=== PATIENT | male | born 1955 | race Caucasian/White ===

== ENCOUNTER 2019-09-02 15:16 | Emergency (ER) | payer OTHER ==
[~2019-09-02] VITALS: Ht 170.2 cm; Wt 73.9 kg
[2019-09-02 15:37] VITALS: Ht 170.2 cm; Wt 73.9 kg
[2019-09-02 18:33] VITALS: BP 141/96
== END 2019-09-02 18:33 | disposition home or self-care (01) ==
LOC: ED 15:16
DX: J18.8 Other pneumonia, unspecified organism (principal); E11.9 Type 2 diabetes mellitus without complications
CPT/HCPCS: Q0092